=== PATIENT | male | born 1985 | race Caucasian/White ===

== ENCOUNTER 2019-02-17 08:10 | Emergency (ER) | payer MEDICAID, OTHER ==
[~2019-02-17] VITALS: Ht 182.9 cm; Wt 106.6 kg
[2019-02-17] MEDS ORDERED: SODIUM CHLORIDE 0.9% 1,000 ML IV ONE (08:42)
[2019-02-17] MEDS ORDERED: KETOROLAC TROMETH 30 MG/ML 1ML VIAL IV ONE (08:45)
[2019-02-17 08:50] VITALS: BP 140/97
[2019-02-17 09:00] LABS: Basophils # (auto) 0.1 uL; Basophils % (auto) 0.4 % (0.0-2.0); Eosinophils # (auto) 0.3 uL; Eosinophils % (auto) 1.9 % (0.0-7.0); Hematocrit 46.4 % (41.0-53.0); Hemoglobin 15.6 g/dL (13.5-17.5); Lymphocytes # (auto) 1.4 uL; Lymphocytes % (auto) 8.6 % (10.0-50.0); Mean Corpuscular Hemoglobin 29.8 pg (28.0-32.0); Mean Corpuscular Hgb Conc. 33.7 g/dL (32.0-36.0); Mean Corpuscular Volume 88.5 fL (80.0-100.0); Monocytes # (auto) 1.5 uL; Neutrophils # (auto) 13.2 uL; Neutrophils % (auto) 80.1 % (37.0-80.0); Platelet Count (auto) 286 10^3/uL (140-450); Red Blood Cells 5.24 10^6/uL (4.5-5.90); Red Cell Distribution Width 12.8 % (11.8-14.3); White Blood Cell 16.5 10^3/uL (4.4-10.8)
[2019-02-17 09:18] LABS: Albumin 3.8 g/dL (3.4-5.0); BUN/Creatinine Ratio 10.2; Calcium 10.4 mg/dL (8.5-10.1); Potassium 4.5 mmol/L (3.5-5.1)
[2019-02-17 09:21] LABS: Bilirubin, Total 0.6 mg/dL (0.2-1.0)
== END 2019-02-17 10:34 | disposition home or self-care (01) ==
LOC: EDBD 08:10 → ER 08:18
DX: J03.90 Acute tonsillitis, unspecified (principal); R53.1 Weakness
CPT/HCPCS: 36415; 80053; 85025; 94761; 96374; 99283; J1885; J7030

== ENCOUNTER 2020-07-04 08:44 | Emergency (ER) | payer MEDICAID ==
[~2020-07-04] VITALS: Ht 182.9 cm; Wt 112.5 kg
[2020-07-04] MEDS ORDERED: IPRATROPIUM BROM 0.5 MG/2.5ML INH SOL NEB ONE (09:30)
[2020-07-04] MEDS ORDERED: ALBUTEROL SULF 2.5 MG/0.5ML(0.5%) NEB SOLN NEB ONE (09:30)
[2020-07-04 09:51] VITALS: BP 126/86
== END 2020-07-04 10:51 | disposition home or self-care (01) ==
LOC: ER 08:44
DX: J40 Bronchitis, not specified as acute or chronic (principal); R42 Dizziness and giddiness; R51.9 Headache, unspecified; Z20.822 Contact with and (suspected) exposure to COVID-19; R10.9 Unspecified abdominal pain
CPT/HCPCS: 36415; 71046; 87426; 94640; 99284; J7644; U0003